=== PATIENT | female | born 1935 | race Caucasian/White ===

== ENCOUNTER 2023-10-24 14:21 | Emergency (ER) | payer OTHER ==
[2023-10-24 15:02] VITALS: BMI 23.4
[2023-10-24] MEDS ORDERED: ONDANSETRON *ODT* 4 MG TABLET ONE (15:46)
[2023-10-24 15:56] LABS: BASO % 0.2 % (0-2.0); EOS % 0.5 % (0-4.5); HEMOGLOBIN 11.9 GM/dL (10.7-15.3); LYMPH % 15.1 % (8-40); MCH 30.6 pg (25.7-33.7); MEAN PLT VOLUME 6.3 fl (7.5-11.1); MONO % 4.8 % (3.8-10.2); NEUT % 79.4 % (42.8-82.8); PLATELET COUNT 345 10^3/uL (134-434); RBC 3.89 M/mm3 (3.60-5.2); RDW 13.7 % (11.6-15.6); WHITE BLOOD COUNT 10.4 K/mm3 (4.0-10.0)
[2023-10-24] MEDS: ONDANSETRON *ODT* 4 MG TABLET SL ONE (16:06)
[2023-10-24] MEDS: ACETAMINOPHEN 1000 MG/100 ML BAG IVPB ONE (16:06)
[2023-10-24 16:07] LABS: INR 0.96 (0.83-1.09)
[2023-10-24 16:10] LABS: ACTIVATED PTT 26.7 SECONDS (25.2-36.5)
[2023-10-24 16:24] LABS: CALCIUM 9.2 mg/dL (8.5-10.1)
[2023-10-24 16:25] LABS: ALBUMIN 3.8 g/dl (3.4-5.0); MAGNESIUM 2.3 mg/dL (1.8-2.4)
[2023-10-24 16:28] LABS: CREATININE 0.8 mg/dL (0.55-1.3)
[2023-10-24 16:29] LABS: TOT PROT 7.4 g/dl (6.4-8.2)
[2023-10-24 16:30] LABS: BILIRUBIN,TOTAL 0.4 mg/dL (0.2-1)
[2023-10-24] MEDS ORDERED: MAGNESIUM CITRATE 300 ML BOTTLE ONE (18:12)
[2023-10-24] MEDS: MAGNESIUM CITRATE 300 ML BOTTLE PO ONE (18:12)
[2023-10-24] MEDS: MINERAL OIL ENEMA 133 ML ENEMA RC ONE (18:22)
[2023-10-25 00:42] VITALS: BP 165/75; PULSE 58; RESP 12; TEMP 98.1
== END 2023-10-25 00:54 | disposition home or self-care (01) ==
LOC: JER 14:21
PROC: 3E033NZ Introduction of Analgesics, Hypnotics, Sedatives into Peripheral Vein, Percutaneous Approach (ICD-10-PCS; principal; 2023-10-24)
DX: R10.32 Left lower quadrant pain (principal); K59.00 Constipation, unspecified; R11.0 Nausea
CPT/HCPCS: 36415; 74177-TC; 80053; 83605; 83735; 85025; 85610; 85730; 93005; 93010; 99285-25; J0131; Q0162; Q9967

== ENCOUNTER 2023-11-23 15:13 | Inpatient (IN) | payer OTHER ==
[2023-11-23 16:37] LABS: BASO % 0.4 % (0-2.0); EOS % 0.4 % (0-4.5); HEMATOCRIT 38.2 % (32.4-45.2); HEMOGLOBIN 13.3 GM/dL (10.7-15.3); LYMPH % 10.3 % (8-40); MCH 31.5 pg (25.7-33.7); MCHC 34.9 g/dl (32.0-36.0); MEAN CELL VOLUME 90.5 fl (80-96); MEAN PLT VOLUME 6.4 fl (7.5-11.1); MONO % 4.2 % (3.8-10.2); NEUT % 84.7 % (42.8-82.8); PLATELET COUNT 327 10^3/uL (134-434); RBC 4.22 M/mm3 (3.60-5.2); WHITE BLOOD COUNT 8.5 K/mm3 (4.0-10.0)
[2023-11-23 17:11] LABS: POTASSIUM 4.2 mmol/L (3.5-5.1)
[2023-11-23 17:13] LABS: CALCIUM 9.9 mg/dL (8.5-10.1)
[2023-11-23 17:14] LABS: ALBUMIN 3.9 g/dl (3.4-5.0); BLOOD UREA NITROGEN 19.4 mg/dL (7-18)
[2023-11-23 17:17] LABS: CREATININE 0.9 mg/dL (0.55-1.3)
[2023-11-23 17:18] LABS: BILIRUBIN,TOTAL 0.3 mg/dL (0.2-1)
[2023-11-23 17:19] LABS: TOT PROT 8.1 g/dl (6.4-8.2)
[2023-11-23] MEDS: MINERAL OIL ENEMA 133 ML ENEMA RC ONE (20:26)
[2023-11-23] MEDS ORDERED: MAGNESIUM CITRATE 300 ML BOTTLE ONE (21:35)
[2023-11-23] MEDS ORDERED: POLYETHYLENE GLYCOL (HEALTHYLAX) 3350 17 GM PACKET ONE (21:35)
[2023-11-23] MEDS: POLYETHYLENE GLYCOL (HEALTHYLAX) 3350 17 GM PACKET PO SCH (21:41)
[2023-11-23] MEDS: MAGNESIUM CITRATE 300 ML BOTTLE PO ONE (21:41)
[2023-11-23] MEDS ORDERED: amLODIPine BESYLATE 5 MG TABLET (FP) ONE (22:09)
[2023-11-23] MEDS ORDERED: LISINOPRIL 20 MG TABLET ONE (22:10)
[2023-11-23] MEDS: LISINOPRIL 20 MG TABLET PO SCH (22:16)
[2023-11-23] MEDS: amLODIPine BESYLATE 5 MG TABLET (FP) PO ONE (22:16)
[2023-11-24 03:49] VITALS: BMI 21.5
[2023-11-24] MEDS: amLODIPine BESYLATE 5 MG TABLET (FP) PO ONE (05:29)
[2023-11-24 10:14] LABS: BASO % 0.3 % (0-2.0); EOS % 0.9 % (0-4.5); HEMATOCRIT 35.8 % (32.4-45.2); HEMOGLOBIN 12.4 GM/dL (10.7-15.3); LYMPH % 16.5 % (8-40); MCH 31.1 pg (25.7-33.7); MCHC 34.6 g/dl (32.0-36.0); MEAN CELL VOLUME 89.8 fl (80-96); MONO % 4.8 % (3.8-10.2); NEUT % 77.5 % (42.8-82.8); PLATELET COUNT 320 10^3/uL (134-434); RBC 3.99 M/mm3 (3.60-5.2); RDW 13.5 % (11.6-15.6); WHITE BLOOD COUNT 8.6 K/mm3 (4.0-10.0)
[2023-11-24 10:35] LABS: POTASSIUM 3.7 mmol/L (3.5-5.1)
[2023-11-24] MEDS: QUEtiapine FUMARATE 50 MG TABLET PO SCH (10:44)
[2023-11-24] MEDS: ENOXAPARIN NA (PORCINE) 40 MG/0.4 ML DISP.SYRIN SQ SCH (10:44)
[2023-11-24] MEDS: amLODIPine BESYLATE 5 MG TABLET (FP) PO SCH (10:44)
[2023-11-24 10:46] LABS: ALBUMIN 3.4 g/dl (3.4-5.0); CALCIUM 8.8 mg/dL (8.5-10.1); CREATININE 0.6 mg/dL (0.55-1.3)
[2023-11-24 10:47] LABS: BILIRUBIN,TOTAL 0.5 mg/dL (0.2-1); MAGNESIUM 2.3 mg/dL (1.8-2.4)
[2023-11-24 10:49] LABS: PHOSPHOROUS 3.4 mg/dL (2.5-4.9)
[2023-11-24 10:53] LABS: TOT PROT 7.1 g/dl (6.4-8.2)
[2023-11-24] MEDS: CARBIDOPA/LEVODOPA 25/100 TABLET (FP) PO SCH (13:28)
[2023-11-24] MEDS: BISACODYL 5 MG TABLET.DR (FP) PO ONE (18:12)
[2023-11-24] MEDS: PEG 3350/NA SULF BICARB CL/KCL 4000 ML SOLN.RECON PO ONE (18:12)
[2023-11-24] MEDS: DOCUSATE SODIUM 100 MG CAPSULE (FP) PO SCH (21:38)
[2023-11-25 10:31] VITALS: RESP 20
[2023-11-25 14:31] VITALS: BP 112/56; PULSE 68; TEMP 98.8
== END 2023-11-25 15:15 | DRG 389 ==
LOC: JER 15:13 → JERBED 20:05 → J8W 11-24 00:49
PROVIDERS: ADMIT Internal Medicine; ATTEND Nurse Practitioner Family
DX: K56.41 Fecal impaction (principal); N13.30 Unspecified hydronephrosis; K62.89 Other specified diseases of anus and rectum; L89.151 Pressure ulcer of sacral region, stage 1; I10 Essential (primary) hypertension; F03.90 Unspecified dementia, unspecified severity, without behavioral disturbance, psychotic disturbance, mood disturbance, and anxiety; G20.A1 Parkinson's disease without dyskinesia, without mention of fluctuations
CPT/HCPCS: 36415; 74177-TC; 80053; 83605; 83735; 84100; 85025; 87635; 93005; 93010; 97116-GP; 97161-GP; 99285-25; Q9967

== ENCOUNTER 2024-02-14 16:48 | Inpatient (IN) | payer OTHER ==
[2024-02-14 18:57] LABS: BASO % 0.4 % (0-2.0); EOS % 2.1 % (0-4.5); HEMATOCRIT 39.2 % (32.4-45.2); HEMOGLOBIN 13.1 GM/dL (10.7-15.3); LYMPH % 26.8 % (8-40); MCH 29.7 pg (25.7-33.7); MCHC 33.4 g/dl (32.0-36.0); MEAN CELL VOLUME 88.7 fl (80-96); MEAN PLT VOLUME 6.4 fl (7.5-11.1); MONO % 6.9 % (3.8-10.2); NEUT % 63.8 % (42.8-82.8); PLATELET COUNT 393 10^3/uL (134-434); RBC 4.42 M/mm3 (3.60-5.2); RDW 13.5 % (11.6-15.6); WHITE BLOOD COUNT 8.5 K/mm3 (4.0-10.0)
[2024-02-14 19:05] LABS: INR 0.94 (0.83-1.09); PROTHROMBIN TIME (PATIENT) 10.6 SEC (9.7-13.0)
[2024-02-14 19:08] LABS: ACTIVATED PTT 27.5 SECONDS (25.2-36.5)
[2024-02-14 19:17] LABS: POTASSIUM 4.2 mmol/L (3.5-5.1)
[2024-02-14 19:19] LABS: ALBUMIN 3.6 g/dl (3.4-5.0); BLOOD UREA NITROGEN 14.5 mg/dL (7-18); CALCIUM 9.4 mg/dL (8.5-10.1); MAGNESIUM 2.4 mg/dL (1.8-2.4)
[2024-02-14 19:22] LABS: CREATININE 0.8 mg/dL (0.55-1.3)
[2024-02-14 19:24] LABS: BILIRUBIN,TOTAL 0.3 mg/dL (0.2-1); TOT PROT 7.8 g/dl (6.4-8.2)
[2024-02-14 19:30] LABS: EPI CELLS 6 /uL (0-25.1); HYALINE CASTS 0 /uL (0-3.1); URINE APPEARANCE CLEAR; URINE BACTERIA 3667 /uL (0-1359); URINE BILIRUBIN NEGATIVE (NEGATIVE); URINE COLOR YELLOW; URINE GLUCOSE (UA) NEGATIVE (NEGATIVE); URINE KETONE NEGATIVE (NEGATIVE); URINE LEUK ESTERASE 1+ (NEGATIVE); URINE NITRITE NEGATIVE (NEGATIVE); URINE PROTEIN NEGATIVE (NEGATIVE); URINE RBC 13 /uL (0-23.9); URINE UROBILINOGEN 0.2 mg/dL (0.2-1.0); URINE WBC 89 /uL (0-25.8)
[2024-02-14] MEDS ORDERED: CEFTRIAXONE 1 GM/50 ML BAG ONE (21:41)
[2024-02-14] MEDS: CEFTRIAXONE 1 GM in DEXTROSE 5%-WATER - 100 ML IVPB ONE (21:59)
[2024-02-15 01:13] VITALS: BMI 20.2
[2024-02-15] MEDS: POLYETHYLENE GLYCOL (HEALTHYLAX) 3350 17 GM PACKET PO SCH (05:18)
[2024-02-15] MEDS: DOCUSATE SODIUM 100 MG CAPSULE (FP) PO SCH (05:18)
[2024-02-15] MEDS: CARBIDOPA/LEVODOPA 25/100 TABLET (FP) PO SCH (05:18)
[2024-02-15 07:09] LABS: HEMATOCRIT 36.8 % (32.4-45.2); HEMOGLOBIN 12.5 GM/dL (10.7-15.3); MCH 30.2 pg (25.7-33.7); MEAN CELL VOLUME 88.8 fl (80-96); MEAN PLT VOLUME 6.6 fl (7.5-11.1); PLATELET COUNT 367 10^3/uL (134-434); RBC 4.15 M/mm3 (3.60-5.2); WHITE BLOOD COUNT 7.8 K/mm3 (4.0-10.0)
[2024-02-15 07:38] LABS: CALCIUM 9.1 mg/dL (8.5-10.1)
[2024-02-15 07:39] LABS: ALBUMIN 3.3 g/dl (3.4-5.0); BLOOD UREA NITROGEN 11.7 mg/dL (7-18)
[2024-02-15 07:42] LABS: CREATININE 0.7 mg/dL (0.55-1.3)
[2024-02-15 07:43] LABS: BILIRUBIN,TOTAL 0.5 mg/dL (0.2-1)
[2024-02-15] MEDS ORDERED: cefTRIAXone SODIUM 1 GM VIAL IVPB SCH (10:19)
[2024-02-15] MEDS: ENOXAPARIN NA (PORCINE) 40 MG/0.4 ML DISP.SYRIN SQ SCH (10:35)
[2024-02-15] MEDS: CEFTRIAXONE 1 G/50 ML PREMIX 50 ML IVPB SCH (13:49)
[2024-02-15] MEDS ORDERED: CEFTRIAXONE 1 GM in DEXTROSE 5%-WATER - 50 ML IVPB SCH (20:00)
[2024-02-15] MEDS: SENNOSIDES 8.8 MG/5 ML SYRUP PO SCH (21:51)
[2024-02-15] MEDS: QUEtiapine FUMARATE 50 MG TABLET PO SCH (21:51)
[2024-02-16 07:43] LABS: HEMATOCRIT 36.9 % (32.4-45.2); HEMOGLOBIN 12.8 GM/dL (10.7-15.3); MCH 30.7 pg (25.7-33.7); MCHC 34.7 g/dl (32.0-36.0); MEAN CELL VOLUME 88.5 fl (80-96); MEAN PLT VOLUME 6.7 fl (7.5-11.1); PLATELET COUNT 353 10^3/uL (134-434); RBC 4.17 M/mm3 (3.60-5.2); RDW 13.3 % (11.6-15.6); WHITE BLOOD COUNT 6.9 K/mm3 (4.0-10.0)
[2024-02-16] MEDS ORDERED: INSULIN (LEVEMIR) 100 UNITS/ML UNITS SQ ONE (07:44)
[2024-02-16 07:55] LABS: POTASSIUM 4.7 mmol/L (3.5-5.1)
[2024-02-16 08:01] LABS: CALCIUM 9.4 mg/dL (8.5-10.1)
[2024-02-16 08:02] LABS: ALBUMIN 3.2 g/dl (3.4-5.0); BLOOD UREA NITROGEN 18.1 mg/dL (7-18)
[2024-02-16 08:05] LABS: CREATININE 0.8 mg/dL (0.55-1.3)
[2024-02-16 08:06] LABS: BILIRUBIN,TOTAL 0.3 mg/dL (0.2-1)
[2024-02-16] MEDS: LOSARTAN POTASSIUM 25 MG TABLET PO ONE (08:18)
[2024-02-16] MEDS: VANCOMYCIN/WATER FOR INJ (PEG) 1,000 MG/200 ML BAG IVPB SCH (14:39)
[2024-02-17 07:29] LABS: HEMATOCRIT 37.6 % (32.4-45.2); HEMOGLOBIN 13.3 GM/dL (10.7-15.3); MCH 31.2 pg (25.7-33.7); MCHC 35.4 g/dl (32.0-36.0); MEAN CELL VOLUME 88.1 fl (80-96); MEAN PLT VOLUME 6.6 fl (7.5-11.1); PLATELET COUNT 344 10^3/uL (134-434); RBC 4.27 M/mm3 (3.60-5.2); WHITE BLOOD COUNT 7.2 K/mm3 (4.0-10.0)
[2024-02-17 07:53] LABS: POTASSIUM 4.7 mmol/L (3.5-5.1)
[2024-02-17 08:07] LABS: CALCIUM 9.4 mg/dL (8.5-10.1)
[2024-02-17 08:08] LABS: ALBUMIN 3.3 g/dl (3.4-5.0); BLOOD UREA NITROGEN 19.7 mg/dL (7-18)
[2024-02-17 08:11] LABS: CREATININE 0.9 mg/dL (0.55-1.3)
[2024-02-17 08:12] LABS: BILIRUBIN,TOTAL 0.4 mg/dL (0.2-1)
[2024-02-17 08:13] LABS: TOT PROT 7.2 g/dl (6.4-8.2)
[2024-02-18 07:48] LABS: HEMATOCRIT 38.8 % (32.4-45.2); MCH 30.4 pg (25.7-33.7); MCHC 33.4 g/dl (32.0-36.0); MEAN CELL VOLUME 90.8 fl (80-96); MEAN PLT VOLUME 6.9 fl (7.5-11.1); PLATELET COUNT 392 10^3/uL (134-434); RBC 4.28 M/mm3 (3.60-5.2); RDW 13.2 % (11.6-15.6); WHITE BLOOD COUNT 7.3 K/mm3 (4.0-10.0)
[2024-02-18 08:31] LABS: BLOOD UREA NITROGEN 22.1 mg/dL (7-18); CALCIUM 8.8 mg/dL (8.5-10.1); POTASSIUM 4.5 mmol/L (3.5-5.1)
[2024-02-18 08:36] LABS: CREATININE 0.7 mg/dL (0.55-1.3)
[2024-02-18] MEDS: VANCOMYCIN/WATER FOR INJ (PEG) 750 MG/150 ML BAG IVPB SCH (14:08)
[2024-02-19 07:22] LABS: BASO % 1.1 % (0-2.0); EOS % 3.3 % (0-4.5); HEMATOCRIT 37.3 % (32.4-45.2); HEMOGLOBIN 12.6 GM/dL (10.7-15.3); LYMPH % 29.2 % (8-40); MCH 30.1 pg (25.7-33.7); MCHC 33.7 g/dl (32.0-36.0); MEAN CELL VOLUME 89.4 fl (80-96); MEAN PLT VOLUME 6.8 fl (7.5-11.1); MONO % 6.5 % (3.8-10.2); NEUT % 59.9 % (42.8-82.8); PLATELET COUNT 334 10^3/uL (134-434); RBC 4.18 M/mm3 (3.60-5.2); RDW 13.1 % (11.6-15.6); WHITE BLOOD COUNT 6.1 K/mm3 (4.0-10.0)
[2024-02-19 07:32] LABS: POTASSIUM 4.6 mmol/L (3.5-5.1)
[2024-02-19 07:41] LABS: ALBUMIN 3.2 g/dl (3.4-5.0); BLOOD UREA NITROGEN 22.1 mg/dL (7-18)
[2024-02-19 07:44] LABS: CREATININE 0.6 mg/dL (0.55-1.3); PHOSPHOROUS 3.6 mg/dL (2.5-4.9)
[2024-02-19 07:47] LABS: BILIRUBIN,TOTAL 0.4 mg/dL (0.2-1); TOT PROT 6.8 g/dl (6.4-8.2)
[2024-02-19] MEDS: FUROSEMIDE 20 MG TABLET (FP) PO SCH (15:12)
[2024-02-19 18:28] VITALS: RESP 18
[2024-02-20 08:38] LABS: POTASSIUM 4.6 mmol/L (3.5-5.1)
[2024-02-20 08:44] LABS: BLOOD UREA NITROGEN 23.3 mg/dL (7-18); CALCIUM 9.4 mg/dL (8.5-10.1)
[2024-02-20 08:48] LABS: CREATININE 0.7 mg/dL (0.55-1.3)
[2024-02-20 13:33] VITALS: BP 128/71; PULSE 64; TEMP 98.1
[2024-02-20] MEDS ORDERED: POLYETHYLENE GLYCOL (HEALTHYLAX) 3350 17 GM PACKET PO SCH (22:00)
== END 2024-02-20 17:07 | DRG 690 ==
LOC: JER 16:48 → JERBED 21:24 → J4W 23:29 → OBSVTOIN 02-15 01:14
PROVIDERS: ADMIT Internal Medicine; ATTEND Internal Medicine
DX: N39.0 Urinary tract infection, site not specified (principal); G20.A1 Parkinson's disease without dyskinesia, without mention of fluctuations; F03.90 Unspecified dementia, unspecified severity, without behavioral disturbance, psychotic disturbance, mood disturbance, and anxiety; I10 Essential (primary) hypertension; K59.00 Constipation, unspecified; B95.2 Enterococcus as the cause of diseases classified elsewhere; I95.1 Orthostatic hypotension; G47.00 Insomnia, unspecified; R00.1 Bradycardia, unspecified
CPT/HCPCS: 0241U-QW; 36415; 70450-TC; 71045-TC-FY; 72125-TC; 72170-TC-FY; 72192-TC; 80048; 80053; 81003; 82550; 83735; 84100; 84484; 85025; 85027; 85610; 85730; 86850; 86900; 86901; 87086; 87186; 93005; 93010; 93306-TC; 97116-GP; 97162-GP; 99285-25; G0378; G0480